=== PATIENT | male | born 1985 | race Caucasian/White ===

== ENCOUNTER 2021-01-19 21:14 | Emergency (ER) | payer OTHER ==
[~2021-01-19] VITALS: Ht 177.8 cm; Wt 72.6 kg
[2021-01-19 21:43] LABS: ABSOLUTE BASOPHILS 0.1 thou/uL (0.0-0.2); ABSOLUTE EOSINOPHILS 0.1 thou/uL (0.0-0.7); ABSOLUTE LYMPHOCYTES 2.5 thou/uL (0.8-5.3); ABSOLUTE MONOCYTES 0.6 thou/uL (0.0-1.2); ABSOLUTE NEUTROPHILS 3.3 thou/uL (1.6-8.1); BASOPHILS 0.9 %; EOSINOPHILS 1.9 %; HEMATOCRIT 39.4 % (42.0-52.0); HEMOGLOBIN 13.8 gm/dL (14.0-18.0); LYMPHOCYTES 38.1 %; MCH 30.9 pg (26.0-34.0); MCHC 34.9 g/dL (28.0-37.0); MCV 88.6 fL (80.0-100.0); MONOCYTES 8.9 %; MPV 7.3 fl. (7.2-11.1); NUCLEATED RBCS 0 /100WBC; PLATELET COUNT* 348 thou/uL (150-400); POLYS 50.2 %; RBC 4.45 mil/uL (4.50-6.00); RDW-CV 12.9 % (10.5-14.5); WBC 6.6 thou/uL (4.0-11.0)
[2021-01-19 21:52] LABS: CALCIUM 8.9 mg/dL (8.5-10.1); CREATININE 1.1 mg/dL (0.6-1.3); POTASSIUM 3.7 mmol/L (3.5-5.1)
[2021-01-19 21:56] LABS: ALBUMIN 4.1 g/dL (3.4-5.0); TOTAL BILIRUBIN 0.3 mg/dL (<0.1-1.0)
[2021-01-19 22:06] LABS: URINE BILIRUBIN NEGATIVE (Negative); URINE BLOOD NEGATIVE (Negative); URINE CLARITY CLEAR; URINE COLOR YELLOW; URINE GLUCOSE-RANDOM NEGATIVE (Negative); URINE KETONES NEGATIVE (Negative); URINE LEUKOCYTES-REFLEX NEGATIVE (Negative); URINE NITRITE-REFLEX NEGATIVE (Negative); URINE PROTEIN TRACE (Negative); URINE SPECIFIC GRAVITY 1.015 (1.005-1.030)
[2021-01-19 22:15] LABS: AMP/METHAMP Negative (Negative); BARBITURATES Negative (Negative); BENZODIAZEPINES Negative (Negative); COCAINE Negative (Negative); METHADONE Negative (Negative); OPIATES Negative (Negative); PCP Negative (Negative); THC Negative (Negative)
[2021-01-20 00:31] VITALS: BP 124/70
--- NOTE | 2021-01-20 10:59 | EKG ---
[place] [address] ELECTROCARDIOGRAM REPORT Name: SANDIE MONTENEGRO Room: [facility]#: [id number] Admission: 01/19/21 Attend Phys: Discharge: 01/20/21 Date of : 83 Date of Service: 01/19/212115 Report #: [id number] THIS REPORT FOR: //name// [facility] ED Test Date: 2021-01-19 Test Time: 21:16:46 Pat Name: SANDIE MONTENEGRO Department: Room: Gender: Gin Feeder: MD : 1985 Requested By: Tabby Bass Order Number: [id number] MD: Brent Carver Measurements Intervals [place] Rate: 82 P: 63 [place]: 148 QRS: 67 QRSD: 90 T: 42 QT: 363 QTc: 424 Interpretive Statements Sinus arrhythmia RsR' in V1 Left atrial enlargement No previous ECG available for comparison Electronically Signed On 01-20-2021 10:58:55 CDT by Brent Carver [email or web address] <ELECTRONICALLY SIGNED> By: Brent Carver MD, [facility] 01/20/21 1058 15 15 Brent Carver MD, [facility] /EPI
== END 2021-01-20 00:32 | disposition home or self-care (01) ==
LOC: M.ERS 21:14
PROVIDERS: Emergency Medicine
DX: R07.89 Other chest pain (principal); R42 Dizziness and giddiness; F41.9 Anxiety disorder, unspecified